=== PATIENT | female | born 1955 | race Caucasian/White ===

== ENCOUNTER 2023-05-13 01:55 | Day surgery (SDC) | payer MEDICARE, MEDICAID, SELFPAY ==
--- NOTE | 2023-05-06 11:17 | PC.NURSE ---
Report to the Outpatient Waiting Room, entrance under the green pavilion located off [facility], at time _1000 on date __05/13/23 . Planned Procedure Time: _1200 . Time changes happen often and if your time is changed the preop area will call you the afternoon before. - You and your visitor will be asked to self-screen and do not enter if you have any COVID symptoms. - A mask is optional within the hospital at this time. Patients may have clear liquids (water, carbonated beverages, clear teas, apple juice) until 3 hours prior to surgery with a maximum of 20 ounces. - No food from midnight until time of surgery - Infants may have breast milk until 4 hours before surgery, formula 6 hours prior to surgery. - Children will be allowed to drink immediately following surgery. If applicable, please bring a bottle or sippy cup to assist with drinking. Juice, water, soda, and popsicles are readily available. For infants on formula, please bring formula the day of surgery. Pacifiers are allowed. Take the following medications with a SIP of water the morning of surgery: __LEVOTHYROXINE DO NOT STOP ANY OF YOUR OTHER PRESCRIPTION MEDICATIONS PRIOR TO SURGERY ?EXCEPT THE FOLLOWING Medications to discontinue per physician _IVANRELTO 7 DAYS PRE OP PER DR MORA.LAST DOSE 05/05/23. ALL VITAMINS AND SUPPLEMENTS 3 DAYS PRE OP .LAST DOSE 05/09/23 Please no make-up, nail citizen of [place], hairspray, perfume, deodorant, or body powder the day of surgery. No jewelry (including any body piercings) or valuables the day of surgery, leave them at home. Please take a shower or bath the night before, or the morning of, surgery with an antibacterial soap. Wear comfortable, loose fitting clothing. Children are encouraged to wear pajamas. - Jewelry must be removed prior to entering the operating room. Rings and piercings that are not removed may be cut off. - The hospital will not accept responsibility for valuables. - Please leave all valuables, including medications, at home the day of surgery. If you are going home after surgery, a licensed tank wagon driver must drive you home. - NO public transportation without another adult if you receive anesthesia. - We recommend that an adult stay with you for 24 hours following discharge. - We also recommend that you do not drive, make important decision, drink alcoholic beverages, or take any drugs that were not prescribed by your health care provider for at least 24 hours after your discharge time. For Pediatric surgeries, we recommend two adults accompany the child home. Follow any additional instructions given to you from your surgeon. If you or anyone in your household have experienced Covid symptoms in the past week, please notify your surgeon or the nurse liaison at the phone number below for possible testing. Telephone instructions given to __PATIENT and asked if any additional questions and then verbalized understanding. Patient advised to call surgeon office or pre surgery nurse liaison [phone] if any additional questions.
[2023-05-06 11:44] VITALS: BMI 19.8
[2023-05-13] VITALS (7 sets, daily range): BP systolic 117–153; BP diastolic 74–85; PULSE 76–110; RESP 16; TEMP 36.5; O2SAT 96–100
[2023-05-13] MEDS: LACTATED RINGERS 1,000 ML 30 ML IV CONT (10:15)
[2023-05-13 10:52] LABS: Prothrombin Time 13.7 Seconds (11.1-14.7)
[2023-05-13 10:53] LABS: Partial Thromboplastin Time 24.1 SECONDS (22.3-36.8)
--- NOTE | 2023-05-13 10:55 | WPDHPUPDATE1 ---
History and Physical Update Update Date/Time: 05/13/23 10:55 History and Physical has been reviewed, including an updated exam of the patient. There are NO changes in the patient's condition. Risks, benefits, and alternatives have been discussed and questions answered. Patient agrees to proceed with procedure.
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
[2023-05-13 10:56] LABS: Add Urine Microscopic? YES; Appearance Urine Cloudy (Clear); Bacteria Urine None Seen /hpf; Bilirubin Urine Negative (Negative); Blood Urine 3+ (Negative); Color Urine Yellow (Yellow); Glucose Urine UA Negative (Negative); Hyaline Casts Urine Present /lpf; Ketones Urine Negative (Negative); Leukocyte Esterase Ur 1+ LEU/UL (Negative); Nitrate Urine Negative (Negative); Protein Urine 1+ mg/dL (Negative); Specific Grav Ur 1.016 (1.001-1.035); Squamous Epithelial Cell Urine Few /hpf (Few); Urobilinogen Urine 0.2 mg/dL (<2.0); WBC Urine 0-5 /hpf; pH Urine 5.5 (5.0-9.0)
--- NOTE | 2023-05-13 11:11 | WPDANESEPPF ---
Anes - Initial Pre Proc Eval Procedure: Operation Date: 05/13/23 12:00 Proposed Procedures p Removal Spinal Cord Stimulator and Generator - Lindsey Solorzano MD Date/Time: 05/13/23 11:11 Surgeon: Lindsey Solorzano MD Pre Op Diagnosis: spinal cord stimulator dysfunction Patient Data Age: 67 Gender: F Height: 1.55 m Weight: 47.65 kg Allergies Allergy/AdvReac Type Severity Reaction Status Date / Time cyclobenzaprine Allergy Severe Hallucinati Verified 05/13/23 10:56 [From Flexeril] ng fluoxetine AdvReac Hallucinati Verified 05/13/23 10:56 ng mannitol [From Reclast] AdvReac ELEVATED BP Verified 05/13/23 10:56 morphine AdvReac Hallucinati Verified 05/13/23 10:56 ng zoledronic acid AdvReac ELEVATED BP Verified 05/13/23 10:56 [From Reclast] Home Medications Medication Instructions Recorded Confirmed Type albuterol (refill) 90 90 mcg inhalation Q4-6H PRN Dyspnea 06/30/22 05/06/23 History mcg/actuation aerosol inhaler atorvastatin 40 mg tablet 40 mg PO HS 06/30/22 05/06/23 History baclofen 20 mg tablet See Rx Instructions .Route .COMPLEX 06/30/22 05/06/23 History ergocalciferol (vitamin D2) 1,250 1,250 mcg PO WEEKLY 06/30/22 05/06/23 History mcg (50,000 unit) capsule estradiol 0.01% (0.1 mg/gram) 1 applic vaginal 3XW 06/30/22 05/06/23 History vaginal cream fluconazole 100 mg tablet 100 mg PO DAILY 06/30/22 05/06/23 History fluticasone propionate 50 1 spray intranasal QAM 06/30/22 05/06/23 History mcg/actuation nasal spray,suspension levothyroxine 50 mcg tablet 50 mcg PO QAM 06/30/22 05/06/23 History methenamine hippurate 1 gram tablet 1 g PO BID 06/30/22 05/06/23 History midodrine 5 mg tablet 5 mg PO BID PRN Hypotension 06/30/22 05/06/23 History oxybutynin chloride 10 mg 10 mg PO HS 06/30/22 05/06/23 History tablet,extended release 24 hr rabeprazole 20 mg tablet,delayed 20 mg PO QAM 06/30/22 05/06/23 History release rivaroxaban 20 mg tablet (Xarelto) 20 mg PO HS 06/30/22 05/06/23 History trazodone 100 mg tablet 50 mg PO HS 06/30/22 05/06/23 History tretinoin 0.025 % topical cream 1 applic topical PRN PRN ECZEMA 06/30/22 05/06/23 History ascorbic acid (vitamin C) 500 mg 500 mg PO DAILY 04/02/23 05/06/23 History capsule ibuprofen 600 mg tablet 600 mg PO Q8H PRN Pain 04/02/23 05/06/23 History conjugated estrogens 0.625 mg 0.625 mg PO DAILY 05/06/23 05/06/23 History tablet (Premarin) Laboratory Tests 05/13/23 10:36 PT 13.7 Seconds (11.1-14.7) INR 1.0 APTT 24.1 SECONDS (22.3-36.8) Urine Color Yellow (Yellow) Urine Appearance Cloudy H (Clear) Urine pH 5.5 (5.0-9.0) Ur Specific [place] 1.016 (1.001-1.035) Urine Protein 1+ H mg/dL (Negative) Urine Glucose (UA) Negative mg/dL (Negative) Urine Ketones Negative mg/dL (Negative) Ur Blood (Man) 3+ H (Negative) Urine Nitrate Negative (Negative) Urine Bilirubin Negative (Negative) Urine Urobilinogen 0.2 mg/dL (<2.0) Leukocyte Esterase Rfl 1+ H ZAINAB/UL (Negative) Urine RBC 3-5 H /hpf (0-2) Urine WBC 0-5 /hpf Ur Squamous Epith Cells Few /hpf (Few) Urine Bacteria None seen /hpf Urine Casts 11-20 Hyaline Casts Present /lpf (None) Patient hx anesthesia problems: none Family hx anesthesia problems: none Results Review: All pre-operative results and documents have been reviewed as part of the pre-operative evaluation. [facility] Social History Social History Smoking status: Never smoker Alcohol intake: current Drinks per week: 1 Substance use: never Living arrangements: with family Additional living arrangements comments: [phone] Spiritual care concerns: No Anes - Eval Final PreProcedure Day of Procedure 05/13/23 11:11 Patient weight: normal Heart: regular rate and rhythm Lungs: clear to
[2023-05-13] MEDS: ceFAZolin 2 GM/D5W 50 ML 2 GM/50 ML BAG IVPB (11:22)
[2023-05-13] MEDS: BUPIVACAINE/EPINEPHRINE 0.5% 50 ML VIAL 20 ML INFILTRATE (11:51)
--- NOTE | 2023-05-13 12:48 | P.OP_ITS ---
Procedure Note - Detailed Date of Procedure 05/13/23 Pre-op Diagnosis spinal cord stimulator dysfunction Post-op Diagnosis Same Procedure Performed 1. Removal of spinal cord stimulator generator from left gluteal pocket 2. Removal of thoracic epidural paddle stimulator Surgeon Lindsey Solorzano MD [employer] [facility] Anesthesia General Indications Ms. Issa is a 67-year-old female with history of spinal cord injury who had a stimulator placed through a thoracic laminectomy in [id number] who has never had relief from the stimulator and associates gluteal pain with the generator site. She requested to have the device removed. Risks of surgery were discussed including pain, infection, bleeding, need for more extensive exposure like a laminectomy to remove the leads, epidural hematoma, and anesthetic risks were discussed. The patient provided written informed consent to proceed. Description of Procedure The patient arrived in the operating room where general anesthesia was induced. The patient was turned prone onto the operating table. All pressure points were padded. The previous incisions were marked. The surgical field was prepped and draped in usual sterile fashion. Time out was conducted, and local anesthetic was injected into all planned incisions. The left gluteal incision was opened with a 10-blade scalpel. The soft tissue was dissected to the generator which was exposed with the bovie. A sandra was used to remove the generator from the pocket. The leads were cut, and the generator was passed off. The bovie was used to score the interior surfaces of the generator pocket to promote adhesion of the tissue. Next, the thoracic incision was opened the the scalpel, and the soft tissue and leads were exposed with the bovie. The leads were followed to the entry point of the spinal canal. A currette was used to free the tissue surrounding the paddle until the paddle was able to be removed from the epidural space. All material was removed from the wounds and was sent for gross pathology. Hemostasis was ensured with the bovie. Both incisions were copiously irrigated. The fascia was closed with 0 vicryl. The dermis was closed with interrupted 2-0 and 3-0 vicryl. The skin was closed in a subcuticular fashion with 4-0 monocryl. The incisions were covered with skin glue. The patient was returned to the supine position, extubated, and transferred to PACU without incident. Billing codes: 33432, 64729 Estimated Blood Loss -10.0 Drains No Packing No Pathology Yes Complications None Condition Stable Disposition PACU [facility] Billing Surgery - Charge Forward: Surgery Billing
[2023-05-13] MEDS: fentaNYL CITRATE INJ (*CRX) 100 MCG/2 ML VIAL 25 MCG IV PUSH (13:26)
[2023-05-13] MEDS: oxyCODONE HCL (*CRX) 5 MG TAB IR PO (14:00)
== END 2023-05-13 14:36 | disposition home or self-care (01) ==
PROVIDERS: Visit Provider Neurological Surgery
PROC: (CPT 63662; principal; 2023-05-13 12:00)
DX: T85.192A Other mechanical complication of implanted electronic neurostimulator of spinal cord electrode (lead), initial encounter (principal); M53.3 Sacrococcygeal disorders, not elsewhere classified; T85.840A Pain due to nervous system prosthetic devices, implants and grafts, initial encounter; Y83.8 Other surgical procedures as the cause of abnormal reaction of the patient, or of later complication, without mention of misadventure at the time of the procedure; Z79.51 Long term (current) use of inhaled steroids; Z79.01 Long term (current) use of anticoagulants; Z98.1 Arthrodesis status; G82.50 Quadriplegia, unspecified; Z93.3 Colostomy status; Z87.828 Personal history of other (healed) physical injury and trauma; Z99.3 Dependence on wheelchair
CPT/HCPCS: 63662; 63688; 36415; 81001; 85610; 85730; 88300; A9270; J0330; J0690; J1100; J2250; J2405; J2704; J3010; J7120